=== PATIENT | male | born 1995 | race Caucasian/White ===

== ENCOUNTER → 2018-11-30 | Emergency (ER) | payer OTHER ==
--- NOTE | 2018-11-30 23:12 | NUR ---
CALLED TO TRIAGE PT THREE TIMES IN WAITING ROOM. NO RESPONSE.
--- NOTE | 2018-11-30 23:47 | NUR ---
CALLED TO TRIAGE PT THREE TIMES IN WAITING ROOM. NO RESPONSE.
--- NOTE | 2018-12-01 00:11 | NUR ---
CALLED TO TRIAGE PT THREE TIMES IN WAITING ROOM. NO RESPONSE.
== END | disposition left against medical advice (07) ==
LOC: ER 22:45
DX: Z53.21 Procedure and treatment not carried out due to patient leaving prior to being seen by health care provider (principal)